=== PATIENT | male | born 1990 | race Two or more races ===

== ENCOUNTER 2021-05-18 16:57 | Emergency (ER) | payer SELFPAY ==
[~2021-05-18] VITALS: Ht 170.2 cm; Wt 61.2 kg
--- NOTE | 2021-05-18 17:28 | NUR ---
Pt was triaged and placed in the ER waiting room. There are no ER beds available at this time. Pt ambulatory on arrival, NAD noted at triage.
[2021-05-18] MEDS ORDERED: IBUP-1957 PO (20:00)
--- NOTE | 2021-05-18 20:19 | NUR ---
Patient given written and verbal discharge instructions. Patient verbalizes understanding of instructions. Patient is ambulatory with steady gait. Refuses offer of senior care placement. Patient given list of available shelters in surrounding area.
[2021-05-18 20:26] VITALS: BP 120/75
== END 2021-05-18 20:27 | disposition home or self-care (01) ==
LOC: ER 17:02
DX: S16.1XXA Strain of muscle, fascia and tendon at neck level, initial encounter (principal); Y92.149 Unspecified place in prison as the place of occurrence of the external cause; S63.92XA Sprain of unspecified part of left wrist and hand, initial encounter; T71.193A Asphyxiation due to mechanical threat to breathing due to other causes, assault, initial encounter; Y04.0XXA Assault by unarmed brawl or fight, initial encounter; S83.92XA Sprain of unspecified site of left knee, initial encounter; F15.20 Other stimulant dependence, uncomplicated; Z72.0 Tobacco use
CPT/HCPCS: 73100; 73120; 73560; A4663